=== PATIENT | female | born 1975 | race African-American/Black ===

== ENCOUNTER 2016-06-09 09:47 | Emergency (ER) | payer MEDICARE, MEDICAID | END 2016-06-09 11:32 | disposition home or self-care (01) | LOC: D.ER 09:47 | DX: S16.1XXA Strain of muscle, fascia and tendon at neck level, initial encounter (principal); V89.2XXA Person injured in unspecified motor-vehicle accident, traffic, initial encounter; Y93.89 Activity, other specified; Y92.89 Other specified places as the place of occurrence of the external cause; M54.12 Radiculopathy, cervical region ==

== ENCOUNTER 2017-09-07 22:19 | Emergency (ER) | payer MEDICARE ==
[~2017-09-07] VITALS: Ht 167.6 cm; Wt 68.2 kg
[2017-09-07 22:25] VITALS: Ht 167.6 cm; Wt 68.2 kg
[2017-09-07] MEDS ORDERED: VOLTAREN75 MG PO (23:50)
[2017-09-07] MEDS ORDERED: ROBAXIN-750750 MG PO (23:50)
[2017-09-08 00:35] VITALS: BP 134/87
== END 2017-09-08 00:36 | disposition home or self-care (01) ==
LOC: D.ER 22:19
DX: S16.1XXA Strain of muscle, fascia and tendon at neck level, initial encounter (principal); X58.XXXA Exposure to other specified factors, initial encounter; Y93.9 Activity, unspecified; Y92.9 Unspecified place or not applicable; M62.838 Other muscle spasm; F17.200 Nicotine dependence, unspecified, uncomplicated

== ENCOUNTER 2018-10-10 08:00 | Outpatient (CLI) | payer MEDICARE ==
[2017-09-07 22:25] VITALS: BMI 24.2
[~2018-10-10 08:00] MED LIST: ROBAXIN-750750 MG PO; VOLTAREN75 MG PO
== END 2018-10-10 10:00 | disposition home or self-care (01) ==
LOC: D.MAMMO 08:00
PROVIDERS: ATTEND Family Medicine
DX: N64.52 Nipple discharge (principal)